=== PATIENT | male | born 1960 | race Caucasian/White ===

== ENCOUNTER 2024-10-14 16:40 | Inpatient (IN) | payer MEDICAID, OTHER ==
[~2024-10-14] VITALS: Ht 170.2 cm; Wt 77.6 kg
[2024-10-14] MEDS: IBUPROFEN 400MG TABLET PO ONE (17:57)
[2024-10-14] MEDS: HYDROCODONE/ACETAMINOPHEN 5/325MG TABLET PO ONE (18:50)
[2024-10-14] MEDS ORDERED: ONDANSETRON HCL 4MG/2ML INJ IV STA (20:31)
[2024-10-14] MEDS ORDERED: MORPHINE SULFATE 4 MG/ML INJ (FOR IV/IM USE) IV STA (20:31)
[2024-10-14 21:39] LABS: BASOPHILS % 1.3 % (0.0-2.0); EOSINOPHILS % 3.3 % (0.0-5.0); HEMATOCRIT. 50.4 % (42.0-52.0); HEMOGLOBIN. 16.4 g/dL (14.0-18.0); LYMPHOCYTES % 21.0 % (20.0-50.0); MEAN PLATELET VOLUME 9.3 fl (7.4-10.4); MONOCYTES % 9.9 % (2.0-8.0); NEUTROPHILS % 64.5 % (40.0-76.0); PLATELET 182 x1000/uL (130-400); RED BLOOD CELL COUNT 5.45 mill/uL (4.7-6.1); RED CELL DISTRIBUTION WIDTH 13.7 % (11.6-14.6)
[2024-10-14] MEDS: ONDANSETRON HCL 4MG/2ML INJ IV NR (22:39)
[2024-10-14] MEDS: MORPHINE SULFATE 4 MG/ML INJ (FOR IV/IM USE) IV NR (22:40)
[2024-10-14] MEDS: SODIUM CHLORIDE 0.9% 1,000 ML IV ONE (22:40)
[2024-10-14 23:08] LABS: CREATININE 1.1 mg/dL (0.6-1.3); TROPONIN I HIGH SENSITIVITY < 4 ng/L (3.0-53); UREA NITROGEN BLOOD 18 mg/dL (9-23)
[2024-10-14 23:10] LABS: ASPARTATE AMINOTRANSFERASE 21 IU/L (<34); BILIRUBIN DIRECT 0.3 mg/dL (<=3.0); BILIRUBIN TOTAL 0.9 mg/dL (0.1-1.0); PROTEIN TOTAL 7.4 g/dL (6.0-8.3)
[2024-10-14 23:25] LABS: INR 1.0
[2024-10-15 00:30] VITALS: BP 142/65; PULSE 77; RESP 18; TEMP 36.6
[2024-10-15] MEDS ORDERED: KETOROLAC 30MG/ML VIAL IV PRN (00:45)
[2024-10-15] MEDS ORDERED: MAGNESIUM/ALUMINUM HYDROXIDE/SIMETHICONE 30ML UDC PO PRN (00:45)
[2024-10-15] MEDS ORDERED: ZOLPIDEM TARTRATE 5MG TABLET PO PRN (00:45)
[2024-10-15] MEDS ORDERED: BISACODYL 5MG TABLET PO PRN (00:45)
[2024-10-15] MEDS ORDERED: ACETAMINOPHEN 325MG TABLET PO PRN (00:45)
[2024-10-15] MEDS ORDERED: DIPHENHYDRAMINE 50MG/ML VIAL IV PRN (00:45)
[2024-10-15] MEDS ORDERED: ONDANSETRON HCL 4MG/2ML INJ IV PRN (00:45)
[2024-10-15] MEDS ORDERED: CLONIDINE 0.1MG TABLET PO PRN (00:45)
[2024-10-15] MEDS ORDERED: NALOXONE HCL 0.4MG/ML VIAL IV PRN (01:00)
[2024-10-15] MEDS: SODIUM CHLORIDE 0.9% 3ML FLUSH IVF SCH (06:16)
[2024-10-15 08:00] VITALS: BP 138/91; PULSE 101; RESP 18; TEMP 36.2; O2SAT 96
[2024-10-15] MEDS: DOCUSATE SODIUM 250MG CAPSULE PO SCH (09:00)
[2024-10-15] MEDS: ASPIRIN 81MG EC TABLET PO SCH (09:09)
[2024-10-15] MEDS: ARIPIPRAZOLE 5MG TABLET PO SCH (09:09)
[2024-10-15] MEDS: LORATADINE 10MG TABLET PO SCH (09:10)
[2024-10-15] MEDS: LISINOPRIL 20MG TABLET PO SCH (09:12)
[2024-10-15] MEDS: ENOXAPARIN 40MG/0.4ML SYR SUBCUT SCH (09:14)
[2024-10-15 12:00] VITALS: BP 146/87; PULSE 95; RESP 18; TEMP 36.3; O2SAT 96
[2024-10-15] MEDS: CLOTRIMAZOLE 1% CREAM 15GM TOP SCH (15:09)
[2024-10-15 16:00] VITALS: BP 122/80; PULSE 94; RESP 16; TEMP 36.3; O2SAT 98
[2024-10-15 20:00] VITALS: BP 120/84; PULSE 95; RESP 18; TEMP 36.6; O2SAT 98
[2024-10-15] MEDS: ATORVASTATIN CALCIUM 10MG TABLET PO SCH (20:06)
[2024-10-15] MEDS: SENNOSIDES 8.6MG TABLET PO SCH (20:06)
[2024-10-15] MEDS ORDERED: CLOTRIMAZOLE 1% TOP SCH ×2 (21:00)
[2024-10-16] VITALS: BP 132/78; PULSE 96; RESP 18; TEMP 36.2; O2SAT 98
[2024-10-16] MEDS: ACETAMINOPHEN 325MG TABLET PO PRN (03:46)
[2024-10-16 04:00] VITALS: BP 120/82; PULSE 97; RESP 18; TEMP 36.7; O2SAT 97
[2024-10-16 08:00] VITALS: BP 147/95; PULSE 90; RESP 19; TEMP 36.5; O2SAT 97
[2024-10-16] MEDS: HYDROCODONE/ACETAMINOPHEN 10/325MG TABLET PO PRN (08:56)
[2024-10-16 12:00] VITALS: BP_SYST 119; BP_SYST 146; BP_DIAS 72; BP_DIAS 87; PULSE 62; PULSE 95; RESP 18; TEMP 36.3; TEMP 36.6; O2SAT 96; O2SAT 97
[2024-10-16 16:00] VITALS: BP 127/85; PULSE 72; RESP 18; TEMP 36.5; O2SAT 98
[2024-10-16 20:00] VITALS: BP 167/77; PULSE 72; RESP 20; TEMP 36.4; O2SAT 94
[2024-10-17] VITALS: BP 129/76; PULSE 69; RESP 20; TEMP 36.6; O2SAT 93
[2024-10-17 04:00] VITALS: BP 135/74; PULSE 62; RESP 18; TEMP 36.5; O2SAT 96
[2024-10-17 08:00] VITALS: BP_SYST 125; BP_DIAS 59; BP_DIAS 89; PULSE 68; RESP 18; TEMP 36.5; O2SAT 100
[2024-10-17 12:00] VITALS: BP 135/87; PULSE 83; RESP 18; TEMP 36.4; O2SAT 96
[2024-10-17 17:15] VITALS: BP 152/94; PULSE 72; TEMP 97.8; O2SAT 96
== END 2024-10-17 17:55 | disposition home or self-care (01) | DRG 135 ==
LOC: ER 16:40 → 6WST 23:16 → EDBEDREQ 23:40 → ENRESERV 23:52
PROVIDERS: ADMIT Internal Medicine; ATTEND Internal Medicine
DX: S22.42XA Multiple fractures of ribs, left side, initial encounter for closed fracture (principal); E78.00 Pure hypercholesterolemia, unspecified; I10 Essential (primary) hypertension; F32.A Depression, unspecified; W01.0XXA Fall on same level from slipping, tripping and stumbling without subsequent striking against object, initial encounter; Y93.89 Activity, other specified; Y92.89 Other specified places as the place of occurrence of the external cause; Y99.8 Other external cause status
CPT/HCPCS: 36415; 71101; 71250; 72192; 80048; 80076; 84484; 85025; 93005; 97162; 99285; A4606; G0378; J1650; J2270; J2405; J7030